=== PATIENT | male | born 1960 | race Two or more races ===

== ENCOUNTER 2021-09-01 07:20 | Day surgery (SDC) | payer MEDICAID ==
[~2021-09-01] VITALS: Ht 170.2 cm; Wt 106.6 kg
[~2021-09-01 07:20] MED LIST: APIX5TAB PO; ASCO100076 PO; CARV3.1240 PO; MULT1TAB64 PO; ROSU10TA16 PO
[2021-09-01] MEDS ORDERED: IODIXANOL 320MG/ML 100ML BTL IV ONE (07:35)
[2021-09-01] MEDS ORDERED: LIDOCAINE 2%HCL (LOCAL ANESTH.) INJ 10ml MDV ONE (07:37)
[2021-09-01] MEDS ORDERED: SODIUM CHL 0.9% 0 ML ONE (08:01)
[2021-09-01] MEDS ORDERED: ANGIOMAX 250 MG VIAL IV ONE (08:01)
[2021-09-01] MEDS ORDERED: MIDAZOLAM HCL 2MG/2ML 2ml VIAL (1mg/ml) ONE (08:01)
[2021-09-01] MEDS ORDERED: VERAPAMIL 2.5MG/ML INJ 2ML VIAL IV ONE (08:01)
[2021-09-01] MEDS ORDERED: fentaNYL CITRATE 100 MCG/2 ML VL ONE (08:01)
[2021-09-01] MEDS ORDERED: HEPARIN SODIUM (PORCINE) 5000 UNITS/ML 1ML VIAL ONE (08:01)
[2021-09-01] MEDS ORDERED: ONDANSETRON HCL 4 MG/2 ML VIAL ONE (08:21)
[2021-09-01 08:59] VITALS: BP 133/81
[2021-09-01 09:14] VITALS: BP 125/76
[2021-09-01 09:29] VITALS: BP 121/75
[2021-09-01 09:44] VITALS: BP 128/85
[2021-09-01 10:14] VITALS: BP 132/87
[2021-09-01 10:29] VITALS: BP 124/78
== END 2021-09-01 10:58 | disposition home or self-care (01) ==
LOC: CATH 07:20
PROVIDERS: ATTEND Internal Medicine Cardiovascular Disease
DX: I25.10 Atherosclerotic heart disease of native coronary artery without angina pectoris (principal); I42.8 Other cardiomyopathies; I11.0 Hypertensive heart disease with heart failure; I50.20 Unspecified systolic (congestive) heart failure; E66.9 Obesity, unspecified; E78.5 Hyperlipidemia, unspecified; Z87.891 Personal history of nicotine dependence; Z20.822 Contact with and (suspected) exposure to COVID-19; Z68.39 Body mass index [BMI] 39.0-39.9, adult
CPT/HCPCS: 93458; C1769; C1887; C1894; J1644; J2001; J2250; J2405; J3010; Q9967; U0003; 99152; 99153

== ENCOUNTER 2023-12-24 07:13 | Day surgery (SDC) | payer MEDICAID ==
[~2023-12-24] VITALS: Ht 170.2 cm; Wt 101.2 kg
[~2023-12-24 07:13] MED LIST changes: +BUPIVACAINE HCL 50 ML ONE; +EMPA1TAB PO; +EPINEPHrine HCL 1 MG/1 ML AMP ONE; +LEFL20TA PO; +MAGN400T40 PO; +ceFAZolin 2 GM/D5W100ml 100 ML IV ONE
[2023-12-24] MEDS ORDERED: ceFAZolin 2 GM/D5W100ml 100 ML IV ONE (08:36)
[2023-12-24] MEDS ORDERED: KETOROLAC TROMETH 30 MG/ML 1ML VIAL IV ONE (10:30)
[2023-12-24] MEDS ORDERED: KETOROLAC TROMETH 30 MG/ML 1ML VIAL ONE (11:18)
[2023-12-24] MEDS ORDERED: BUPIVACAINE 0.5% MPF INJ 30ML SDV IJ ONE (12:29)
[2023-12-24] MEDS ORDERED: TRANEXAMIC ACID 20 ML ONE (12:29)
[2023-12-24] MEDS ORDERED: EPINEPHrine HCL 1 MG/1 ML AMP ONE ×3 (14:31→15:23)
[2023-12-24 15:04] VITALS: TEMP 97.2; O2SAT 99
--- NOTE | 2023-12-24 15:10 | DVHOP2 ---
Operative Report - 2 Report Details Date: 12/24/23 Preop Diagnosis: Right shoulder rotator cuff tear with subacromial impingement with proximal biceps tendon tear Postop Diagnosis: Right shoulder rotator cuff tear with subacromial impingement of the proximal biceps tendon tear Surgeon: Shanique Pastor MD Anesthesiologist: Dr Perez Anesthesia: General, Regional Implant: Arthrex FiberTak x2, SwiveLock x1 Consent: The patient was informed of the risks and benefits of the procedure. These include but are not limited to complications of anesthesia, postoperative infection, incomplete relief of symptoms, recurrence of symptoms, damage to blood vessels, nerves and tendons, deep venous thrombosis, pulmonary embolism and possible need for repeat surgery in the future. Complications: None Estimated Blood Loss: Less than 10 mL Indications for Surgery: Patient is a 63-year-old male who presented to the clinic with a history of chronic shoulder pain. Clinical and radiological evaluation demonstrated a large rotator cuff tear. Nonoperative and operative management options were discussed. Surgery in the form of shoulder arthroscopy with rotator cuff repair was discussed. Benefits, risks and treatment alternatives were discussed. Specific complications of the surgery such as neurovascular injury, infection, arthrofibrosis, loss of limb or life were discussed. The patient decided to proceed with the surgical option. Name of Procedure Performed Right shoulder arthroscopy with rotator cuff repair, extensive synovial debridement, proximal biceps tenodesis, subacromial decompression with acromioplasty Procedure Details Procedure Details: The patient was identified in the preoperative holding area and the surgical site was marked. The consent was verified. The patient was brought into the operating room and placed supine on the operating table. General anesthesia was administered. The beachchair attachment was applied to the operating table. The patient was now brought up into the beachchair position, approximately 60 degrees. The arm was prepped and draped in the usual sterile manner. The arm was placed in the attachment for the spyder, mechanical arm felder. The extremity was examined under anesthesia and was found to have good passive range of motion. A timeout was performed to confirm the identity of the patient, the nature of surgery, the site of surgery, the available of implants and x-rays and allergies to medications A standard posterior portal established. A 30 degree scope was inserted A standard anterior portal was established. A probe was inserted and the findings are as follows: 1. Partial tear of the subscapularis tendon, intact footprint 2. Significant fraying and tear of the biceps tendon 3. Circumferential degenerative labral tear 4. 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 Significant synovitis 6. Full-thickness rotator cuff tear, large-sized with retraction to cartilage with delamination The subacromial space was entered. Significant bursitis was noted. Decompression was carried out with bursectomy. The rotator cuff tear was visualized. This was a large sized tear after debridement. This was retracted up to the glenoid margin. Extensive releases were performed. A thermal ablation Wand was used on the superior and inferior surface of the rotator cuff to do the releases. Rotator interval was also released. Significant time and efforts were spent doing the steps was to decrease the tension on the final repair. After this step, the cuff was very mobile. I decided to do a double row repair for this tear. A medial row all suture anchor was inserted anteriorly. A posterior similar anchor was now inserted. 2 additional portals were made, the posterior lateral portal and the superior portal for this. A cannula was inserted into the lateral portal. A suture penetration and grasping device was used to grasp the tissue and passed the sutures. The sutures were sequentially passed from anterior to posterior direction. Ten passes were made. The sutures were all triple loaded. The sutures were now tied for an excellent medial row footprint coverage. The anterior two sutures were passed through the biceps tendon for a biceps tenodesis. Biceps tendon was released and the tenodesis was completed by tying the knot. Six of the sutures were now inserted into a knotless lateral row anchor. This was used as per manufacture's guidelines. This was a self punching anchor. Good fixation was noted. The footprint was well covered. Subacromial decompression was completed with acromioplasty to remove approximately 5 mm of acromion as it was downsloping in nature. Irrigation was given and the skin portals were closed with 2-0 nylon Sterile dressing was applied. Local anesthetic was given. Shoulder immobilizer was applied Disposition: Good, the patient was extubated and taken to recovery without any complications. The patient was examined in the recovery and had intact neurovascular exam Plan: To remain in the brace. Follow-up in 1 week. Condition Good Disposition Home SHANIQUE PASTOR MD Dec 24, 2023 15:10
[2023-12-24] MEDS ORDERED: HYDROmorphone HCL 2 MG/ML VL/or syr IV PRN (15:35)
[2023-12-24 16:19] VITALS: BP 149/93; PULSE 79; RESP 17; O2SAT 97
[2023-12-24] MEDS ORDERED: HYDROmorphone HCL 2 MG/ML VL/or syr ONE (16:42)
== END 2023-12-24 16:32 | disposition home or self-care (01) ==
LOC: SUR 07:13
PROVIDERS: ATTEND Orthopaedic Surgery Sports Medicine
DX: M75.121 Complete rotator cuff tear or rupture of right shoulder, not specified as traumatic (principal); M75.41 Impingement syndrome of right shoulder; S46.211A Strain of muscle, fascia and tendon of other parts of biceps, right arm, initial encounter; X58.XXXA Exposure to other specified factors, initial encounter; Y93.89 Activity, other specified; Y92.89 Other specified places as the place of occurrence of the external cause; Y99.8 Other external cause status; S43.491A Other sprain of right shoulder joint, initial encounter; M65.811 Other synovitis and tenosynovitis, right shoulder; M94.211 Chondromalacia, right shoulder; G89.29 Other chronic pain; I42.9 Cardiomyopathy, unspecified; E78.00 Pure hypercholesterolemia, unspecified; E11.9 Type 2 diabetes mellitus without complications; E66.9 Obesity, unspecified; Z68.34 Body mass index [BMI] 34.0-34.9, adult; M35.00 Sjogren syndrome, unspecified; Z79.899 Other long term (current) drug therapy; Z95.810 Presence of automatic (implantable) cardiac defibrillator; Z98.890 Other specified postprocedural states; Z88.1 Allergy status to other antibiotic agents
CPT/HCPCS: 29826; 29827; 29828; 64415; 82962; C1713; J0171; J1171; J1885; J3490; A4565